=== PATIENT | male | born 1985 | race Caucasian/White ===

== ENCOUNTER → 2023-11-21 08:38 | Outpatient (REF) | payer OTHER, SELFPAY | LOC: RCS 08:38 | PROVIDERS: ATTENDING PHYSICIAN Internal Medicine Cardiovascular Disease; FAMILY PHYSICIAN Family Medicine | DX: R07.89 Other chest pain (principal); Z82.79 Family history of other congenital malformations, deformations and chromosomal abnormalities | CPT/HCPCS: 93306 ==

== ENCOUNTER → 2023-11-29 07:44 | Outpatient (REF) | payer SELFPAY | LOC: RAD 07:44 | PROVIDERS: ATTENDING PHYSICIAN Internal Medicine Cardiovascular Disease; FAMILY PHYSICIAN Family Medicine | DX: E78.00 Pure hypercholesterolemia, unspecified (principal) | CPT/HCPCS: 75571 ==

== ENCOUNTER 2024-08-11 13:37 | Emergency (ER) | payer OTHER, SELFPAY ==
[2024-08-11 13:49] VITALS: BP 153/97
--- NOTE | 2024-08-11 13:51 | ED.GENMED ---
ED Provider Triage
<Mimi Lee PA-C - Last Filed: 08/11/24 14:10>
-
Patient seen by provider in Triage?: Seen in Triage
Attestation: A medical screening examination has been initiated by a qualified medical provider. Based on the assessment performed at this time, it has been determined that an emergent medical condition may exist and the patient has been informed
that further medical evaluation and possible additional diagnostic testing may be needed.
HPI: 39yoM here with acute on chronic back pain. MRI 3 years ago showed bulging discs and degenerative changes. Seen at urgent care last week and prescribed Medrol dose pack. No improvement so now is on prednisone 60mg x 7 days (today is day 2).
C/o night sweats. Wants to make sure nothing else is going on because his typical back pain gets better with steroids.
GENERAL: Alert , in no apparent distress
EYE: No visual abnormalities.
NECK: Trachea midline
ENT: No visible abnormalities.
LUNGS: No acute respiratory distress
NEUROLOGICAL: Alert and oriented
SKIN: Skin intact. No visible changes.
MUSCULOSKELETAL: Moving extremities normally
PSYCH: Normal and appropriate interaction.
This is a medical evaluation conducted in person to initiate diagnostic evaluation and provide initial therapeutics. Please see further documentation by the treating clinician.
CBC, CMP, UA, and CT abdomen without contrast ordered.
History of Present Illness
<Mimi Lee PA-C - Last Filed: 08/11/24 14:10>
General
Chief Complaint: Back Pain
Time Seen by Provider: 08/11/24 16:05
<Frank Lizama DO - Last Filed: 08/11/24 16:45>
History of Present Illness
History of Present Illness:
TIME OF INITIAL ENCOUNTER: 4:10 PM
HPI:
The patient presents with right-sided low back pain. This is a chronic issue for him for years. He has had physical therapy. He has seen protein specialist and ultimately elected for no surgery. However pain has been worsening over the last few
weeks. He has access to narcotics but tries to limit the use. He took a muscle relaxer recently without much improvement. He was given a shot of Toradol without much improvement at urgent care. They also put him on a Medrol Dosepak couple of
weeks ago and then the other day was placed on 60 mg of prednisone for 7 days. He has been having some paresthesias to the medial aspect of the right thigh. The intermittently has been having trouble walking but that has been an ongoing issue for
him and improved with physical therapy in the past.
EXAM:
GENERAL: Well appearing in no distress
HEENT: Moist oral mucosa
NEUROLOGIC: Excellent strength all extremities, no obvious coordination deficits
BACK: There is no midline or paraspinal tenderness to the lumbar spine, he is able to stand without much difficulty and seems to be moving both lower extremities without any significant discomfort.
PSYCHIATRIC: Appropriate mental status, normal insight and judgement
EXTREMITIES: Nontender, no edema, moves all extremities equally
SKIN: No rash, no lesions
NUMBER AND COMPLEXITY OF PROBLEMS ADDRESSED AT THE ENCOUNTER
� Chronic conditions affecting care: Chronic low back pain
� Acute Exacerbation and/or Progression of Chronic Illness: This is an acute exacerbation of a chronic problem
� Differential Diagnosis includes: Acute exacerbation of chronic back pain, spinal stenosis, herniated disc, sciatica, ureteral stone/colic, metastatic disease unlikely
AMOUNT AND/OR COMPLEXITY OF DATA TO BE REVIEWED AND ANALYZED
� I performed an independent evaluation of and my interpretation is:
EKG:
CT: CT shows multilevel disc disease from T11-L3 with no sign of kidney stone
X-rays:
Laboratory Studies: White count and hemoglobin are normal, normal renal function, UA relatively unremarkable
Other:
� Review of other/old records: The patient was seen here in 2021 several times for low back pain
� Clinical information was obtained by an independent historian: None needed
� Prescriptions/Medications Considered but not given: The patient is already on narcotic, muscle relaxer, NSAIDs, steroids; offered and considered Toradol however the patient declines as it did not help much in the past.
� Further testing considered but not performed:
RISK OF COMPLICATIONS AND/OR MORBIDITY OR MORTALITY OF PATIENT MANAGEMENT
� Social determinants of health affecting care: Lives at home
� Discussion with other providers:
� Escalation of care including admission/observation vs risk of discharge considered: The patient came in as he was concerned that he could have a more serious etiology of symptoms. CT imaging relatively unremarkable but does
show degenerative disc disease from T11-L3. He has follow-up arranged already with orthopedic/spine.
ANY OTHER UPDATES:
Past History
<Mimi Lee PA-C - Last Filed: 08/11/24 14:10>
Past History
ED Past Medical History: Other (Sciatica, lower back pain)
ED Past Surgical History: Orthopedic (L ACL repair, L and R meniscus repairs)
Patient has exhibited threatening behavior?: No
Social History
Tobacco: Non-smoker
Alcohol: Occasional
Drug: None
Living: with family
Employment: Employed
Phy Exam
<Frank Lizama DO - Last Filed: 08/11/24 16:45>
Physical Exam
Physical Exam:
See HPI
Course
<Mimi Lee PA-C - Last Filed: 08/11/24 14:10>
Orders/Labs/Results
Orders:
Orders
08/11/24 13:56
Iohexol [Omnipaque] See Protocol PO NOW STA
08/11/24 14:03
CT Abd/pel Without Iv Or Oral Urgent
Comment:
Reason For Exam: lower back/flank pain
08/11/24 14:05
Complete Blood Count/With Diff Urgent
Comprehensive Metabolic Panel Urgent
Urinalysis Reflex To Culture Urgent
Date Specimen was Collected: 08/11/24
Time Specimen was Collected: 14:03
Urine Microscopic Reflex Cult Urgent
Abnormal Lab Results
08/11/24
14:05
RBC 6.19 H 10^6/uL
(4.70-6.10)
Hct 52.1 H %
(39.0-52.0)
Neutrophils % 80.4 H %
(42.2-75.2)
Lymphocytes % 16.5 L %
(20.5-51.1)
Glucose 121 H mg/dl
(70-99)
Alkaline Phosphatase 34 L U/L
(38-126)
Albumin 5.4 H g/dl
(3.5-5.0)
Ur Occult Blood Reflex Trace A
(Negative)
Urine RBC 3-6 A /HPF
(0-2)
08/11/24 14:05
08/11/24 14:05
Vital Signs
Initial and Last Documented VS:
Initial Vital Signs
Temp Pulse Resp BP Pulse Ox
98.7 F 77 18 153/97 97
08/11/24 13:49 08/11/24 13:49 08/11/24 13:49 08/11/24 13:49 08/11/24 13:49
Last Documented Vital Signs
Temp Pulse Resp BP Pulse Ox
98.7 F 77 18 153/97 97
08/11/24 13:49 08/11/24 13:49 08/11/24 13:49 08/11/24 13:49 08/11/24 13:49
[place];Frank Lizama, - Last Filed: 08/11/24 16:45>
Orders/Labs/Results
Orders:
Orders
08/11/24 13:56
Iohexol [Omnipaque] See Protocol PO NOW STA
08/11/24 14:03
CT Abd/pel Without Iv Or Oral Urgent
Comment:
Reason For Exam: lower back/flank pain
08/11/24 14:05
Complete Blood Count/With Diff Urgent
Comprehensive Metabolic Panel Urgent
Urinalysis Reflex To Culture Urgent
Date Specimen was Collected: 08/11/24
Time Specimen was Collected: 14:03
Urine Microscopic Reflex Cult Urgent
Abnormal Lab Results
08/11/24
14:05
RBC 6.19 H 10^6/uL
(4.70-6.10)
Hct 52.1 H %
(39.0-52.0)
Neutrophils % 80.4 H %
(42.2-75.2)
Lymphocytes % 16.5 L %
(20.5-51.1)
Glucose 121 H mg/dl
(70-99)
Alkaline Phosphatase 34 L U/L
(38-126)
Albumin 5.4 H g/dl
(3.5-5.0)
Ur Occult Blood Reflex Trace A
(Negative)
Urine RBC 3-6 A /HPF
(0-2)
08/11/24 14:05
08/11/24 14:05
Vital Signs
Initial and Last Documented VS:
Initial Vital Signs
Temp Pulse Resp BP Pulse Ox
98.7 F 77 18 153/97 97
08/11/24 13:49 08/11/24 13:49 08/11/24 13:49 08/11/24 13:49 08/11/24 13:49
Last Documented Vital Signs
Temp Pulse Resp BP Pulse Ox
98.7 F 77 18 153/97 97
08/11/24 13:49 08/11/24 13:49 08/11/24 13:49 08/11/24 13:49 08/11/24 13:49
<Frank Lizama DO - Last Filed: 08/11/24 16:45>
*Critical Care Note
Total Time (30-74mins, 75-104mins- exclusive of procedures): Not Applicable
ED Attending Note
<Mimi Lee PA-C - Last Filed: 08/11/24 14:10>
-
Portions of this chart may have been created with voice recognition software.� Occasional wrong word or��sound alike� substitutions may have occurred due to the inherent limitations of voice recognition software.
Discharge Plan
Departure
Patient Disposition: Home (Routine Discharge)
Date of Disposition: 08/11/24
Time of Disposition: 16:37
Patient with high blood pressure during this ER visit?: Yes
Discharge Problem:
Acute on chronic low back pain
Instructions: Low Back Pain (DC)
Prescriptions:
No Action
diclofenac sodium 75 MG tablet,delayed release (DR/EC)
75 mg PO BID Qty: 14 0RF
prednisone 20 MG tablet
20 mg PO ONCE
Patient Comments:
Has leftover from last month - took one this evening
oxycodone-acetaminophen 5 MG/325 MG tablet
1 tab PO Q6HPRN PRN (Reason: pain) Qty: 14 0RF
diclofenac sodium 25 MG tablet,delayed release (DR/EC)
50 mg PO BID PRN (Reason: pain) Qty: 30 0RF
prednisone 50 mg tablet
50 mg PO DAILY 4 Days Qty: 4 0RF
tizanidine [Zanaflex] 4 mg capsule
4 mg PO BID PRN (Reason: muscle spasticity) Qty: 7 0RF
oxycodone-acetaminophen [Percocet] 5-325 mg Tablet
1 tab PO Q6HPRN PRN (Reason: pain) Qty: 12 0RF
Activity Restrictions/Additional Instructions:
Continue prednisone as previously prescribed. Basic blood work is unremarkable. There is no sign of a urinary tract infection/kidney infection. The CAT scan of the abdomen and pelvis shows multilevel degenerative disc disease from T11-12 through
L2-3. No kidney stones are noted, no sign of infection inside of the abdomen and pelvis. Follow-up with your orthopedist/protein specialist.
Interventions
Interventions:
*Risk Screen - Suicide Last Done: 08/11/24 13:49
*General Assessment Last Done: 08/11/24 15:55
*Neglect/Abuse Screening Last Done: 08/11/24 13:49
*ED COVID-19 Vaccine History Last Done: 08/11/24 13:49
Discharge Date and Time
Print Language: FAROESE
[2024-08-11 14:32] LABS: % Basophils 0.1 % (0-2); % Immature Granulocytes 0.4 % (0-0.5); % Lymphocytes 16.5 % (20.5-51.1); % Monocytes 2.6 % (1.7-9.3); % Neutrophils 80.4 % (42.2-75.2); Absolute Lymphocytes 1.3 10^3/uL (1.2-3.4); Absolute Monocytes 0.2 10^3/uL (0.1-0.6); Absolute Neutrophils 6.2 10^3/uL (1.4-6.5); Hematocrit 52.1 % (39.0-52.0); Hemoglobin 17.5 g/dL (13.0-18.0); Mean Corp Hgb Conc. 33.6 g/dL (33.0-37.0); Mean Corpuscular Hgb 28.3 pg (27.0-31.0); Mean Corpuscular Volume 84.2 fL (80.0-94.0); Mean Platelet Volume 9.7 fL (7.4-10.4); Nucleated Red Blood Cells % 0 % (-); Platelet Count 273 10^3/uL (130-400); Red Blood Cell Count 6.19 10^6/uL (4.70-6.10); Red Cell Dist. Width 13.3 % (11.5-14.5); White Blood Cell Count 7.7 10^3/uL (4.8-10.8)
[2024-08-11 14:36] LABS: Urine Albumin Negative (Neg - Trace); Urine Bilirubin Negative (Negative); Urine Character Clear (Clear); Urine Color Yellow; Urine Glucose Negative (Negative); Urine Ketone Negative (Negative); Urine Leukocyte Negative (Negative); Urine Nitrite Negative (Negative); Urine Occult Blood Trace (Negative); Urine Urobilinogen Negative (Neg - 1+)
[2024-08-11 14:53] LABS: ALT (SGPT) 23 U/L (0-50); AST (SGOT) 24 U/L (17-59); Albumin 5.4 g/dl (3.5-5.0); Alkaline Phosphatase 34 U/L (38-126); Blood Urea Nitrogen 12 mg/dl (9-20); Calcium 9.9 mg/dl (8.4-10.2); Carbon Dioxide 24 mmol/L (22-30); Chloride 104 mmol/L (98-107); Glucose 121 mg/dl (70-99); Potassium 4.5 mmol/L (3.5-5.1); Sodium 143 mmol/L (135-145); Total Bilirubin 1.2 mg/dl (0.2-1.3); eGFR > 60.00
[2024-08-11 14:58] LABS: Urine Amorphous Seen; Urine Squamous Cell 0-2 /LPF (Few)
[2024-08-11 14:59] LABS: Urine White Cell 0-2 /HPF (0-5)
[2024-08-11 15:00] LABS: Urine Hyaline Cast 0-2 /LPF (0-2)
== END 2024-08-11 17:01 | disposition home or self-care (01) ==
LOC: EMR 13:37
PROVIDERS: Physician Assistant; EMERGENCY PHYSICIAN Emergency Medicine; FAMILY PHYSICIAN Family Medicine
DX: G89.29 Other chronic pain (principal); M54.9 Dorsalgia, unspecified; R61 Generalized hyperhidrosis
CPT/HCPCS: 99284; 74176; 80053; 81003; 81015; 85025

== ENCOUNTER → 2025-02-09 12:33 | Outpatient (REF) | payer OTHER, SELFPAY | LOC: HWEVLT 12:33 | PROVIDERS: ATTENDING PHYSICIAN Radiology Vascular & Interventional Radiology | DX: I83.893 Varicose veins of bilateral lower extremities with other complications (principal) | CPT/HCPCS: 93970 ==

== ENCOUNTER → 2025-07-15 08:11 | Outpatient (REF) | payer OTHER, SELFPAY | LOC: HWEVLT 08:11 | PROVIDERS: ATTENDING PHYSICIAN Radiology Diagnostic Radiology | DX: I83.892 Varicose veins of left lower extremity with other complications (principal) | CPT/HCPCS: 36478; C1769 ==

== ENCOUNTER → 2025-07-29 13:33 | Outpatient (REF) | payer OTHER, SELFPAY | LOC: HWEVLT 13:33 | PROVIDERS: ATTENDING PHYSICIAN Radiology Diagnostic Radiology | DX: I83.892 Varicose veins of left lower extremity with other complications (principal) | CPT/HCPCS: 93971 ==